=== PATIENT | female | born 1995 | race Caucasian/White ===

== ENCOUNTER 2024-05-31 08:01 | Inpatient (IN) ==
[2024-05-31] MEDS ORDERED: Nalbuphine 10 MG/ML 1 ML VIAL IV PRN (09:13)
[2024-05-31] MEDS ORDERED: Lidocaine 1% VIAL 10 MG/ML 30 ML VIAL INJ PRN (09:13)
[2024-05-31] MEDS: Lactated Ringers 1000 ml BAG 1,000 ML IV SCH ×2 (09:54→19:35)
[2024-05-31 10:10] LABS: ABS Basophils 0.1 10^3/uL (0.0-0.1); ABS Eosinophils 0.2 10^3/uL (0.0-0.5); ABS Lymphocytes 1.8 10^3/uL (1.0-4.8); ABS Monocytes 0.6 10^3/uL (0.0-0.9); ABS Neutrophils 10.1 10^3/uL (1.5-7.6); ABS Nucleated RBC 0.01 10^3/ul; Eosinophil % 1.8 %; Lymphocyte % 13.9 %; Mean Corpuscular Hemoglobin 30.3 pg (27-33); Mean Corpuscular Hgb Conc 34.5 g/dL (31-36); Mean Corpuscular Volume 87.9 fL (80-97); Mean Platelet Volume 8.4 fL (7.5-11.2); Nucleated Red Blood Cells % 0.1 %/100WBC (0.0-0.8); Platelet Count 217 10^3/uL (150-450); Red Blood Count 3.65 10^6/uL (3.63-4.92); White Blood Count 12.9 10^3/uL (3.8-11.8)
[2024-05-31] MEDS: Oxytocin in LR 20,000 MILLI.UNIT/1,000 ML BAG IV SCH ×2 (10:12→17:20)
[2024-05-31 10:33] LABS: Urine Benzodiazepine Screen None Detected (None Detect); Urine Cannabinoids Screen None Detected (None Detect); Urine Opiates Screen None Detected (None Detect)
[2024-05-31] MEDS: Lactated Ringers 1000 ml BAG 1,000 ML IV ONE ×2 (12:39→19:34)
[2024-05-31] MEDS: OBEPIDURAL (200 ML) 200 ML EPIDURAL ONE (13:20)
[2024-05-31] MEDS ORDERED: Sodium Citrate/Citric Acid LIQ 15 ML UDC PO PRN (13:31)
[2024-05-31] MEDS ORDERED: Phenylephrine 40 mcg/mL 10mL (400mcg) SYRINGE IV PUSH PRN ×2 (13:31)
[2024-05-31 14:53] LABS: Urine Appearance Clear; Urine Bilirubin Negative (Negative); Urine Blood Negative (Negative); Urine Color Colorless; Urine Glucose Negative (Negative); Urine Ketones Negative (Negative); Urine Nitrite Negative (Negative); Urine Protein Negative (Negative); Urine Specific Gravity 1.005 (1.002-1.030); Urine Urobilinogen Negative (Negative); Urine pH 7.5 (5.0-8.0)
[2024-05-31] MEDS ORDERED: Polyethylene Glycol 3350 17 GM PACKET PO PRN (18:44)
[2024-05-31] MEDS ORDERED: Glycerin ADULT 2.4 gm SUPP PR PRN (18:44)
[2024-05-31] MEDS: Witch Hazel PAD JAR TOPICAL PRN (19:04)
[2024-05-31] MEDS: Dibucaine 1% OINT 28.35 GM TUBE PR PRN (19:04)
[2024-05-31] MEDS: Phenylephrine 40 mcg/mL 10mL (400mcg) SYRINGE ONE (19:34)
[2024-05-31] MEDS: Buffered Lidocaine 1% SYRIN 1 ml INTRADERM ONE (19:34)
[2024-05-31] MEDS: Lidocaine 1.5% EPI 1:200,000 30 ML SDV ONE (19:34)
[2024-05-31] MEDS: OBEPIDURAL (200 ML) 200 ML EPIDURAL SCH (19:35)
[2024-06-01] MEDS: Lidocaine 1% VIAL 10 MG/ML 30 ML VIAL ONE (04:44)
[2024-06-01 06:23] LABS: ABS Basophils 0.1 10^3/uL (0.0-0.1); ABS Eosinophils 0.3 10^3/uL (0.0-0.5); ABS Lymphocytes 2.6 10^3/uL (1.0-4.8); ABS Monocytes 0.8 10^3/uL (0.0-0.9); ABS Neutrophils 11.7 10^3/uL (1.5-7.6); Eosinophil % 1.9 %; Hematocrit 30.1 % (35-45); Hemoglobin 10.5 g/dL (11.5-14.3); Lymphocyte % 17.1 %; Mean Corpuscular Hemoglobin 30.9 pg (27-33); Mean Corpuscular Volume 88.4 fL (80-97); Mean Platelet Volume 8.2 fL (7.5-11.2); Platelet Count 188 10^3/uL (150-450); Red Cell Distribution Width 14.1 % (12-17); White Blood Count 15.5 10^3/uL (3.8-11.8)
[2024-06-01] MEDS: Measles, Mumps,Rubella VACC 0.5 ML/VIAL SUBCUT ONE (08:46)
[2024-06-02 09:20] VITALS: BP 114/76
== END 2024-06-02 12:13 | disposition home or self-care (01) | DRG 807 ==
LOC: MCHOBOUT 08:01 → MCHOB 08:42